=== PATIENT | male | born 1940 | race Two or more races ===

== ENCOUNTER 2017-10-27 14:13 | Outpatient (CLI) | payer OTHER | END 2017-10-27 14:19 | disposition home or self-care (01) | LOC: RAD 501 14:13 | DX: S67.31XA Crushing injury of right wrist, initial encounter (principal) ==

== ENCOUNTER 2020-11-07 09:29 | Outpatient (CLI) | payer OTHER | END 2020-11-07 09:40 | disposition home or self-care (01) | LOC: NUCLEAR 09:29 | PROVIDERS: ATTEND Internal Medicine | DX: I49.9 Cardiac arrhythmia, unspecified (principal); I11.9 Hypertensive heart disease without heart failure ==

== ENCOUNTER → 2023-01-20 | Emergency (ER) | payer OTHER ==
[~2023-01-20] VITALS: Ht 172.7 cm; Wt 99.8 kg
[~2023-01-20] MED LIST: ATORVASTATIN CA10 MG; COZAAR25 MG; GLIMEPIRIDE1 M1; PLAVIX75 MG
== END | disposition home or self-care (01) ==
LOC: ER 12:21
DX: R53.81 Other malaise (principal); Z20.822 Contact with and (suspected) exposure to COVID-19; I10 Essential (primary) hypertension; E11.9 Type 2 diabetes mellitus without complications; Z79.4 Long term (current) use of insulin; Z88.0 Allergy status to penicillin

== ENCOUNTER 2023-10-22 14:52 | Outpatient (CLI) | payer OTHER | END 2023-10-22 15:06 | disposition home or self-care (01) | LOC: MRI 14:52 | PROVIDERS: ATTEND Internal Medicine | DX: M43.16 Spondylolisthesis, lumbar region (principal); M41.86 Other forms of scoliosis, lumbar region; M47.896 Other spondylosis, lumbar region | CPT/HCPCS: 72148 ==

== ENCOUNTER 2024-04-06 12:33 | Outpatient (CLI) | payer OTHER | END 2024-04-06 12:39 | disposition home or self-care (01) | LOC: LAB 12:33 | PROVIDERS: ATTEND Internal Medicine | DX: R97.20 Elevated prostate specific antigen [PSA] (principal); N41.0 Acute prostatitis; N39.0 Urinary tract infection, site not specified ==